=== PATIENT | female | born 1965 | race African-American/Black ===

== ENCOUNTER 2021-05-11 03:19 | Observation (INO) ==
[2021-05-11] MEDS ORDERED: ONDANSETRON 4 MG/2 ML VIAL IV STA (03:38)
[2021-05-11] MEDS ORDERED: methylPREDNISolone SOD SUC 125 MG/2 ML VIAL IV STA (03:38)
[2021-05-11] MEDS ORDERED: hydrALAZINE 20 MG/1 ML VIAL IV STA (03:53)
[2021-05-11] MEDS ORDERED: hydrALAZINE 20 MG/1 ML VIAL ONE (03:54)
[2021-05-11] MEDS ORDERED: ALBUTEROL NEB SOLN 5 MG/ML 20 ML/BOTTLE CONT NEB SCH (04:00)
[2021-05-11 04:02] LABS: Basophils % 0.8 % (0.0-0.8); Eosinophils # 0.4 10*3/uL (0.0-0.87); Eosinophils % 7.8 % (0.00-10.9); Hematocrit 41.9 VOL% (35.7-47.0); Immature Granulocytes % 0.2 %; Immature Granulocytes Absolute 0.01 #; Lymphocytes # 1.9 10*3/uL (1.4-4.0); Lymphocytes % 37.3 % (21.3-54.2); Mean Corpuscular Volume 82.3 FL (87-102); Mean Platelet Volume 8.9 FL (9.6-12.0); Monocytes % 12.3 % (1.7-12.7); Neutrophils % 41.6 % (38.7-73.9); Platelet Count 359 T/CUMM (130-400); Red Blood Count 5.09 MC/CUMM (3.8-5.5); Red Cell Distribution Width 13.9 % (9.3-17.3); White Blood Count 5.1 T/CUMM (4-12)
[2021-05-11 04:25] LABS: Albumin 3.4 G/DL (3.4-5.0); Bilirubin,Total 0.4 MG/DL (0.20-1.00); Calcium 8.6 MG/DL (8.5-10.1); Potassium 3.7 MMOL/L (3.5-5.1); Total Protein 7.5 G/DL (6.4-8.2)
[2021-05-11 04:30] LABS: Osmolality,Calculated 281.5 MOS/KG (273-304)
[2021-05-11] MEDS ORDERED: GLUCAGON 1 MG VIAL IM PRN (05:05)
[2021-05-11] MEDS ORDERED: ACETAMINOPHEN 325 MG TABLET PO PRN (05:05)
[2021-05-11] MEDS ORDERED: ONDANSETRON 4 MG/2 ML VIAL IV PRN (05:05)
[2021-05-11] MEDS ORDERED: DEXTROSE 10% 250 ML BAG IV PRN (05:05)
[2021-05-11] MEDS ORDERED: hydrALAZINE 20 MG/1 ML VIAL IV PRN (05:05)
[2021-05-11] MEDS ORDERED: MORPHINE 4 MG/1 ML VIAL IV PRN (05:05)
[2021-05-11] MEDS ORDERED: CLORAZEPATE 7.5 MG TABLET PO PRN (05:13)
[2021-05-11 06:57] VITALS: BP 144/93
[2021-05-11] MEDS ORDERED: ALBUTEROL/IPRATROPIUM 3 ML NEB RESP TX SCH (07:00)
[2021-05-11] MEDS ORDERED: amLODIPine 5 MG TABLET PO SCH (09:00)
[2021-05-11] MEDS ORDERED: PANTOPRAZOLE 40 MG TABLET PO SCH (09:00)
[2021-05-11] MEDS ORDERED: hydroCHLOROthiazide 25 MG TABLET PO SCH (09:00)
[2021-05-11] MEDS ORDERED: methylPREDNISolone SOD SUC 40 MG/1 ML VIAL IV SCH (10:00)
[2021-05-11] MEDS ORDERED: ENOXAPARIN 40 MG/0.4 ML SYRINGE SUBCUT SCH (21:00)
== END 2021-05-11 14:27 | disposition left against medical advice (07) ==
LOC: N.ED 03:19 → N.EDINP 03:19
PROVIDERS: ADMIT Internal Medicine; ATTEND Internal Medicine